=== PATIENT | female | born 1990 | race Caucasian/White ===

== ENCOUNTER 2021-05-25 17:10 | Outpatient (CLI) | payer BC ==
[2021-05-25 18:10] LABS: #Eosinphils 0.4 10x3/uL (0.0-0.5); #Monocytes 0.6 10x3/uL (0.0-1.1); #Neutrophils 3.6 10x3/uL (1.5-8.4); %Basophils 0.4 % (0.0-2.0); %Eosinophils 4.5 % (0.0-6.0); %Lymphocytes 39.8 % (18.0-47.0); %Monocytes 7.8 % (0.0-10.0); %Neutrophils 47.2 % (40.0-75.0); Hemoglobin 13.1 g/dL (12.0-15.5); Mean Corpuscular HGB CONC 33.2 g/dL (32.0-36.0); Mean Corpuscular Hemoglobin 28.1 pg (27.0-33.0); Mean Corpuscular Volume 84.8 fl (81.6-98.3); Mean Platelet Volume 9.8 fl (7.4-10.4); Platelet Count 309 10x3/uL (150-450); Red Blood Cell (RBC) Count 4.66 10x6/uL (3.90-5.03); White Blood Cell (WBC) Count 7.7 10x3/uL (3.5-10.5)
[2021-05-25 18:25] LABS: ALT (SGPT) 31 U/L (8-55); AST (SGOT) 20 U/L (5-34); Albumin 4.6 g/dL (3.5-5.0); Alkaline Phosphatase 84 U/L (40-110); Anion Gap 13 mmol/L (10-20); BUN (Urea Nitrogen) 18 mg/dL (7.0-18.7); Bilirubin, Direct 0.3 mg/dL (0.1-0.3); Bilirubin, Total 0.9 mg/dL (0.2-1.2); Calc. Creatinine Clearance 0 mL/min (70-130); Calcium 9.9 mg/dL (7.8-10.44); Carbon Dioxide 24 mmol/L (22-29); Chloride 106 mmol/L (98-107); Glucose 90 mg/dL (70-105); Potassium 4.4 mmol/L (3.5-5.1); Protein, Total 7.4 g/dL (6.0-8.3); Sodium 139 mmol/L (136-145)
[2021-05-25 18:57] LABS: BHCG - Serum Negative (NEGATIVE); Pregs Control Background? CLEAR/WHITE (CLR/WHITE); Pregs Control Bar Appear? YES (CONTROL BAR)
[2021-05-26 00:09] LABS: SARS-CoV-2 PCR by NAA Not Detected (NotDetected)
== END 2021-05-25 17:11 | disposition home or self-care (01) ==
LOC: LABBT 17:10
PROVIDERS: ATTEND Surgery
DX: Z01.812 Encounter for preprocedural laboratory examination (principal); Z20.822 Contact with and (suspected) exposure to COVID-19
CPT/HCPCS: 80048; 80076; 84703; 85025; U0003; U0005

== ENCOUNTER 2021-05-28 06:09 | Day surgery (SDC) | payer BC, OTHER ==
[2021-05-27 10:42] VITALS: BMI 30.9
[2021-05-28] MEDS ORDERED: ceFAZolin 2 GM/DEX 5% 100 ML BAG ONE (06:36)
[2021-05-28] MEDS ORDERED: Fentanyl 100 MCG/2 ML VIAL ONE (07:11)
[2021-05-28] MEDS ORDERED: HYDROmorphone 2 MG/ML VIAL ONE (07:11)
[2021-05-28] MEDS ORDERED: Bupivacaine 0.25% HCL 30 ML VIAL ONE (07:18)
[2021-05-28] MEDS ORDERED: Lidocaine 1% w/Epinephrine 1:100K 20 ML VIAL ONE (07:18)
[2021-05-28] MEDS ORDERED: Iothalamate Meglumine 60% 50 ML VIAL FS ONE (07:18)
[2021-05-28] MEDS ORDERED: Metoclopramide HCl 10 MG/2 ML VIAL ONE (07:36)
[2021-05-28] MEDS ORDERED: Ondansetron PF 4 MG/2 ML Vial ONE (07:36)
[2021-05-28] MEDS ORDERED: PHENYLEPHRINE-NS 100 MCG/ML 10 ML SYRINGE ONE (07:36)
[2021-05-28] MEDS ORDERED: Ketorolac Tromethamine 30 MG/ML VIAL ONE (07:36)
[2021-05-28] MEDS ORDERED: PROPOFOL 200 MG/20 ML VIAL ONE (07:36)
[2021-05-28] MEDS ORDERED: Glycopyrrolate 0.2 MG/ML 5 ML SYRINGE ONE (07:36)
[2021-05-28] MEDS ORDERED: Lidocaine 1% PF 5 ML VIAL ONE (07:36)
[2021-05-28] MEDS ORDERED: Rocuronium Bromide 10 MG/ML (10ML VIAL) ONE (07:36)
[2021-05-28] MEDS ORDERED: Dexamethasone 20 MG/5 ML VIAL ONE (07:36)
[2021-05-28] MEDS ORDERED: HYDROcodone/Acetaminophen 5/325 mg Tablet ONE (09:50)
== END 2021-05-28 10:32 | disposition home or self-care (01) ==
LOC: SDC 06:09
PROVIDERS: ATTEND Surgery
PROC: BF101ZZ Fluoroscopy of Bile Ducts using Low Osmolar Contrast (ICD-10-PCS; principal; 2021-05-28)
PROC: 0FT44ZZ Resection of Gallbladder, Percutaneous Endoscopic Approach (ICD-10-PCS; principal; 2021-05-28)
DX: K80.10 Calculus of gallbladder with chronic cholecystitis without obstruction (principal)
CPT/HCPCS: 47532; 88304; J1100; J1170; J1885; J2405; J2704; J2765; J3010; Q9961-U8; S0020